=== PATIENT | male | born 1940 | race Caucasian/White ===

== ENCOUNTER 2024-12-20 06:57 | Day surgery (SDC) | payer MEDICARE ==
[2024-12-19 09:14] VITALS: BMI 27.7
[~2024-12-20 06:57] MED LIST: LIDOCAINE 1% (10MG/ML) FOR IV START INTRADERMA PRN
[2024-12-20] MEDS: IV FLUID CONTINUATION 1,000 ML IV ONE ×2 (07:51→10:55)
[2024-12-20 08:16] LABS: Basophils # (A) 0.09 10*3/uL (0.00-0.10); Basophils % (A) 1.1 %; Eosinophils # (A) 0.42 10*3/uL (0.04-0.35); HCT 38.3 % (39.6-50.0); HGB 13.5 g/dL (13.0-17.0); Lymphocytes # (A) 1.62 10*3/uL (0.90-5.00); Lymphocytes % (A) 19.2 %; MCH 32.9 pg (27.0-32.0); MCHC 35.2 g/dL (32.0-37.0); MCV 93.4 fL (80.0-97.0); Mean Platelet Volume 11.1 fL (9.5-12.2); Monocytes # (A) 0.81 10*3/uL (0.20-1.00); Monocytes % (A) 9.6 %; Neutrophils # (A) 5.46 10*3/uL (1.80-7.70); Neutrophils % (A) 64.7 %; Platelet Count 176 10*3/uL (140-440); RDW 12.5 % (11.5-14.5); WBC 8.43 10*3/uL (4.50-10.00)
[2024-12-20] MEDS: METOPROLOL TARTRATE 5 MG/5 ML VIAL IVP STA (08:19)
[2024-12-20] MEDS: ONDANSETRON 4 MG/2 ML VIAL IVP ONE (08:31)
[2024-12-20] MEDS: DEXAMETHASONE SOD PHOSPHATE 4 MG/ML 1 ML VIAL IV ONE (08:31)
[2024-12-20] MEDS: ACETAMINOPHEN TAB 500 MG TAB PO PRN (08:31)
[2024-12-20 09:02] LABS: ALT 23 U/L (4-49); AST 28 U/L (17-59); African American GFR (CKD) 87 (>60 ml/min/1.73 sqM); Albumin 4.1 g/dL (3.5-5.0); Alkaline Phosphatase 79 U/L (38-126); Anion Gap 8 mmol/L; Blood Urea Nitrogen 30 mg/dL (9-20); Calcium 9.9 mg/dL (8.4-10.2); Carbon Dioxide 30 mmol/L (22-30); Chloride 100 mmol/L (98-107); Glucose 139 mg/dL (74-99); Non-African American GFR(CKD) 75 (>60 ml/min/1.73 sqM); Potassium 3.1 mmol/L (3.5-5.1); Sodium 138 mmol/L (137-145); Total Bilirubin 0.9 mg/dL (0.2-1.3); Total Protein 7.3 g/dL (6.3-8.2)
[2024-12-20] MEDS: fentaNYL (PF) 50 MCG/ML 2 ML AMP IVP PRN (09:09)
[2024-12-20] MEDS: HEPARIN SODIUM,PORCINE 5,000 UNIT/ML 1 ML VIAL SQ PRN (09:19)
[2024-12-20] MEDS ORDERED: fentaNYL (PF) 50 MCG/ML 2 ML AMP ONE (09:25)
[2024-12-20] MEDS ORDERED: GLYCOPYRROLATE 0.2 MG/ML 2 ML VIAL ONE (09:25)
[2024-12-20] MEDS ORDERED: SODIUM CHLORIDE 0.9% (PF) 10 ML VIAL ONE (09:25)
[2024-12-20] MEDS ORDERED: SUCCINYLCHOLINE CHLORIDE 200 MG/10 ML VIAL IV ONE (09:25)
[2024-12-20] MEDS ORDERED: METOPROLOL TARTRATE 5 MG/5 ML VIAL IVP ONE (09:25)
[2024-12-20] MEDS ORDERED: ROCURONIUM 10 MG/ML (5 ML VIAL) IV ONE (09:25)
[2024-12-20] MEDS ORDERED: ROPIVACAINE 5 MG/ML 30 ML VIAL ONE (09:25)
[2024-12-20] MEDS ORDERED: NEOSTIGMINE 1 MG/ML 10 ML VIAL ONE (09:25)
[2024-12-20] MEDS ORDERED: LIDOCAINE 1% INJ 10MG/ML (20 ML MDV) ONE (09:25)
[2024-12-20] MEDS ORDERED: PROPOFOL 10 MG/ML 20 ML VIAL IV ONE (09:25)
[2024-12-20] MEDS: ceFAZolin 2 GM in DEXTROSE 5% IN WATER 50 ML IVPB PRN (09:27)
[2024-12-20] MEDS: MIDAZOLAM 2 MG/2 ML VIAL IV ONE (09:33)
[2024-12-20] MEDS: LIDOCAINE 1%-EPI 1:100,000 20 ML VIAL SQ ONE (09:42)
[2024-12-20] MEDS: HYDROmorphone 0.5 MG/0.5 ML SYRINGE IVP PRN (10:43)
[2024-12-20 10:49] VITALS: TEMP 97
[2024-12-20] MEDS: LACTATED RINGERS 1,000 ML IV SCH (10:51)
--- NOTE | 2024-12-20 11:01 | P.ANPRN ---
Procedure Note - Anesthesia - Nerve Block Performed Bilateral Erector Spinae Single Time Out Performed: Yes ([id number]) Date of Procedure: 12/20/24 Procedure Start Time: 09:10 Procedure Stop Time: :14 Location of Patient: PreOp Indication: Acute Post-Operative Pain, Requested by Surgeon Specifically requested for management of pain by DrManda: Feliz Pablo Sedation Type: Sedate with meaningful contact maintained Preparation: Sterile Prep Position: Sitting Catheter: None Needle Types: Pajunk Needle Gauge: 21 Ultrasound used to visualize needle placement: Yes Ultrasound used to observe medication spread: Yes Injectate: 0.5% Ropivacaine (see comment for volume) (15CC+5CC NACL PF EACH SIDE) Blood Aspirated: No Pain Paresthesia on Injection Noted: No Resistance on Injection: Normal Image Stored and Saved: Yes Events: Uneventful and Well Tolerated
[2024-12-20 12:21] VITALS: RESP 18
[2024-12-20 12:49] VITALS: BP 134/84; PULSE 105
--- NOTE | 2024-12-29 15:43 | P.OP ---
Date of Procedure: 12/20/24 Preoperative Diagnosis: Left inguinal hernia Postoperative Diagnosis: l bilateral inguinal hernia Procedure(s) Performed: laparoscopic robot-assisted pair of l bilateral inguinal hernia Transversus abdominis plane block Anesthesia: INESA Surgeon: Feliz Pablo Estimated Blood Loss (ml): 5 Pathology: none sent Condition: stable Disposition: PACU Description of Procedure: The patient's placed on the operating table in the supine position. The patient received general anesthesia. The patient's abdomen was prepped and draped in usual sterile fashion. The skin was anesthetized 1% local Xylocaine at the incision sites. Using an 11 blade a skin incision was made at the u mbilicus. The fascia was grasped with a Sylvester and then the peritoneal cavity was entered with the Veress needle. Position of the Veress needle was confirmed with a positive drop test. After adequate insufflation a 5 mm trocar was placed into the peritoneal cavity. The Laparoscope was placed the peritoneal cavity. And a robotic 8 mm trocar was placed in the right lateral position and then another 8 mm robotic trochars placed in the left lateral position. The original 5 mm trocar was exchanged for a 8 mm trocar. A four quadrant transversus abdominal bloc was performed with 1% local xyloca ine. The patient was placed in reverse Trendelenburg and then the patient was docked to the robot. Next the peritoneum over top of the left hernia was incised and then using blunt and sharp dissection and electrocautery the hernia sac was dissected free from the floor of the inguinal canal. The hernia sac was completely reduced into the peritoneal cavity. And then using the Pro pharmacy teacher mesh the hernia was repaired. The peritoneum was then sutured with 20V lock suture. Next the peritoneum over top of the Right hernia was incised and then using blunt and sharp dissection and electrocautery the hernia sac was dissected free from the floor of the inguinal canal. The hernia sac was completely reduced into the peritoneal cavity. And then using the Pro pharmacy teacher mesh the hernia was repaired. The peritoneum was then sutured with 20V lock suture. The patient was then undocked the robot. The needle was withdrawn from the peritoneal cavity. The umbilical trocar site was closed with 0 Ethibond suture. The skin was closed interrupted 3-0 Monocryl suture. Dermabond dressing was applied. Patient was sent to recovery in stable condition.
== END 2024-12-20 13:43 | disposition home or self-care (01) ==
LOC: OR 06:57
PROVIDERS: ATTEND Surgery
DX: K40.20 Bilateral inguinal hernia, without obstruction or gangrene, not specified as recurrent (principal); G89.18 Other acute postprocedural pain; K21.9 Gastro-esophageal reflux disease without esophagitis; J44.9 Chronic obstructive pulmonary disease, unspecified; I48.91 Unspecified atrial fibrillation; I25.2 Old myocardial infarction; I10 Essential (primary) hypertension; E78.5 Hyperlipidemia, unspecified; N20.0 Calculus of kidney; Z87.891 Personal history of nicotine dependence; Z88.2 Allergy status to sulfonamides; Z79.02 Long term (current) use of antithrombotics/antiplatelets; Z79.899 Other long term (current) drug therapy
CPT/HCPCS: 49650; 64468; 80053; 85025; C1781 ×2; J2250; J0330; J1644; J1100; J2710; J0690; J2405; J2003; J3010; J2795; J2704; J1171; J1596